=== PATIENT | male | born 1995 | race Caucasian/White ===

== ENCOUNTER 2019-05-17 15:24 | Emergency (ER) | payer MEDICAID ==
[~2019-05-17] VITALS: Ht 175.3 cm; Wt 100.0 kg
[2019-05-17] MEDS ORDERED: CEPH500C5 PO (16:21)
[2019-05-17] MEDS ORDERED: TETanus/Pertussis (Acell)/Diphther VAC/PF (Tdap-Adult) 0.5ml syringe IM ONE (16:25)
[2019-05-17] MEDS ORDERED: ibuprofen tablet 400 MG TABLET PO ONE (16:40)
--- NOTE | 2019-05-17 16:40 | NUR ---
Hand soaked per BARBIE Tolbert order for 20 min, patient states he felt a "pop" inside his hand and a stinging. Order for pain medication obtained (see emar).
[2019-05-17 16:41] VITALS: BP 144/91
== END 2019-05-17 16:45 | disposition home or self-care (01) ==
LOC: ER 15:24
DX: S61.431A Puncture wound without foreign body of right hand, initial encounter (principal); R42 Dizziness and giddiness; W27.8XXA Contact with other nonpowered hand tool, initial encounter; Y93.89 Activity, other specified; Y92.69 Other specified industrial and construction area as the place of occurrence of the external cause; Y99.9 Unspecified external cause status
CPT/HCPCS: 73130; 90471; 99283

== ENCOUNTER 2019-11-10 14:02 | Emergency (ER) | payer MEDICAID ==
[~2019-11-10] VITALS: Ht 175.3 cm; Wt 98.0 kg
[2019-11-10 14:13] VITALS: BP 164/97
[2019-11-10] MEDS ORDERED: proparacaine 0.5% ophthalmic drops 15ml EACHEYE ONE (14:50)
[2019-11-10] MEDS ORDERED: ciprofloxacin 0.3% 2.5ml ophthalmic solution EACHEYE SCH (16:00)
== END 2019-11-10 16:14 | disposition home or self-care (01) ==
LOC: ER 14:03
DX: T15.02XA Foreign body in cornea, left eye, initial encounter (principal); W22.8XXA Striking against or struck by other objects, initial encounter; Y93.89 Activity, other specified; Y92.89 Other specified places as the place of occurrence of the external cause; Y99.8 Other external cause status
CPT/HCPCS: 65222; 99284

== ENCOUNTER 2020-10-15 15:27 | Emergency (ER) | payer MEDICAID ==
[~2020-10-15] VITALS: Ht 172.7 cm; Wt 110.0 kg
[2020-10-15 15:30] VITALS: BP 190/125
[2020-10-15] MEDS ORDERED: IBUP-1985 PO (16:32)
== END 2020-10-15 16:55 | disposition home or self-care (01) ==
LOC: ER 15:27
DX: M25.572 Pain in left ankle and joints of left foot (principal); R22.42 Localized swelling, mass and lump, left lower limb; Z79.899 Other long term (current) drug therapy
CPT/HCPCS: 73564; 73610; 99284